=== PATIENT | male | born 1990 | race Caucasian/White ===

== ENCOUNTER 2017-06-15 22:05 | Emergency (ER) | payer OTHER ==
[2017-06-15 22:43] LABS: BASOPHILS 0.3 % (0-2); EOSINOPHILS 4.1 % (0-7); HEMATOCRIT 45.2 % (42.0-54.0); HEMOGLOBIN 16.1 g/dL (13.5-17.5); IMMATURE GRANULOCYTES 0.1 % (0-5); LYMPHOCYTES 36.7 % (15-50); MCH 30.7 pg (26.0-34.0); MCHC 35.6 g/dL (31.0-37.0); MCV 86.1 fL (80.0-100.0); MEAN PLATELET VOLUME 10.4 fL (7.4-10.4); MONOCYTES 6.4 % (2-11); NEUTROPHILS 52.4 % (40-80); PLATELET COUNT 208 10x3/uL (130-400); RBC 5.25 10x6/uL (4.20-6.10); RDW 12.3 % (11.5-14.5); WBC 7.8 10x3/uL (4.8-10.8)
[2017-06-15 22:55] LABS: APPEARANCE CLEAR (CLEAR); BILIRUBIN NEGATIVE (NEGATIVE); COLOR YELLOW (YELLOW); GLUCOSE NEGATIVE (NEGATIVE); KETONE NEGATIVE (NEGATIVE); NITRITE NEGATIVE (NEGATIVE); PROTEIN NEGATIVE (NEGATIVE); UROBILINOGEN NORMAL (NORMAL)
[2017-06-15 23:00] LABS: ALKALINE PHOSPHATASE 77 U/L (46-116); ALT (SGPT) 21 U/L (10-68); CALC OSMOLALITY 285 mosm/kg (275-300); CALCIUM 8.9 mg/dL (8.5-10.1); CARBON DIOXIDE 31.7 mmol/L (21.0-32.0); CHLORIDE - SERUM 103 mmol/L (98-107); CREATININE - SERUM 1.1 mg/dL (0.6-1.3); GLUCOSE 109 mg/dL (74-106); POTASSIUM - SERUM 3.8 mmol/L (3.5-5.1); PROTEIN - SERUM 7.5 g/dL (6.4-8.2); SODIUM 142 mmol/L (136-145); UREA NITROGEN 19 mg/dL (7-18); eGFR NON AFRICAN AMERICAN 86 mL/min (90-120)
== END 2017-06-16 00:05 | disposition home or self-care (01) ==
LOC: D.ER 22:05
PROVIDERS: Emergency Medicine
DX: R19.7 Diarrhea, unspecified (principal); F17.200 Nicotine dependence, unspecified, uncomplicated

== ENCOUNTER 2018-01-25 23:20 | Emergency (ER) | payer SELFPAY ==
[~2018-01-25] VITALS: Ht 188 cm; Wt 68.0 kg
[2018-01-25 23:27] VITALS: Ht 188 cm; Wt 68.0 kg
[2018-01-26] MEDS ORDERED: ULTRAM50 MG PO (01:20)
[2018-01-26 01:47] VITALS: BP 116/73
== END 2018-01-26 01:48 | disposition home or self-care (01) ==
LOC: D.ER 23:20
DX: S43.401A Unspecified sprain of right shoulder joint, initial encounter (principal); X58.XXXA Exposure to other specified factors, initial encounter; Y93.89 Activity, other specified; Y92.89 Other specified places as the place of occurrence of the external cause

== ENCOUNTER 2018-04-10 21:34 | Emergency (ER) | payer SELFPAY ==
[~2018-04-10 21:34] MED LIST: ULTRAM50 MG PO
== END 2018-04-10 21:45 | disposition left against medical advice (07) ==
LOC: D.ER 21:34
DX: E86.0 Dehydration (principal)

== ENCOUNTER 2018-04-11 23:00 | Emergency (ER) | payer SELFPAY ==
[~2018-04-11] VITALS: Ht 188 cm; Wt 68.2 kg
[2018-04-11 23:08] VITALS: Ht 188 cm; Wt 68.2 kg
[2018-04-11 23:41] LABS: BASOPHILS 0.2 % (0-2); EOSINOPHILS 1.1 % (0-7); HEMATOCRIT 38.2 % (42.0-54.0); HEMOGLOBIN 13.2 g/dL (13.5-17.5); IMMATURE GRANULOCYTES 0.2 % (0-5); LYMPHOCYTES 13.7 % (15-50); MCH 29.3 pg (26.0-34.0); MCHC 34.6 g/dL (31.0-37.0); MCV 84.9 fL (80.0-100.0); MEAN PLATELET VOLUME 10.2 fL (7.4-10.4); MONOCYTES 6.7 % (2-11); NEUTROPHILS 78.1 % (40-80); PLATELET COUNT 134 10x3/uL (130-400); RDW 12.8 % (11.5-14.5); WBC 6.6 10x3/uL (4.8-10.8)
[2018-04-11 23:54] LABS: ALBUMIN 3.7 g/dL (3.4-5.0); ALKALINE PHOSPHATASE 59 U/L (46-116); ALT (SGPT) 38 U/L (10-68); CALC OSMOLALITY 280 mosm/kg (275-300); CALCIUM 8.9 mg/dL (8.5-10.1); CARBON DIOXIDE 27.4 mmol/L (21.0-32.0); CHLORIDE - SERUM 106 mmol/L (98-107); CREATININE - SERUM 1.2 mg/dL (0.6-1.3); GLUCOSE 109 mg/dL (74-106); POTASSIUM - SERUM 3.5 mmol/L (3.5-5.1); PROTEIN - SERUM 7.1 g/dL (6.4-8.2); SODIUM 141 mmol/L (136-145); UREA NITROGEN 11 mg/dL (7-18); eGFR NON AFRICAN AMERICAN 77 mL/min (90-120)
[2018-04-12] MEDS ORDERED: IBUPROFEN800 MG PO (00:15)
[2018-04-12] MEDS ORDERED: ACETAMINOPHEN500 M1 PO (00:15)
[2018-04-12 02:20] VITALS: BP 114/79
== END 2018-04-12 00:27 | disposition home or self-care (01) ==
LOC: D.ER 23:00
PROVIDERS: Family Medicine
DX: J06.9 Acute upper respiratory infection, unspecified (principal); R53.81 Other malaise; M79.10 Myalgia, unspecified site; R50.9 Fever, unspecified; R05 Cough; R09.89 Other specified symptoms and signs involving the circulatory and respiratory systems

== ENCOUNTER 2018-04-29 10:17 | Emergency (ER) | payer SELFPAY ==
[~2018-04-29] VITALS: Ht 188 cm; Wt 68.2 kg
[~2018-04-29 10:17] MED LIST changes: +ACETAMINOPHEN500 M1 PO; +IBUPROFEN800 MG PO
[2018-04-29 10:44] VITALS: BP 112/69; Ht 188 cm; Wt 68.2 kg
== END 2018-04-29 13:31 | disposition home or self-care (01) ==
LOC: D.ER 10:17
DX: S49.91XA Unspecified injury of right shoulder and upper arm, initial encounter (principal); X58.XXXA Exposure to other specified factors, initial encounter; Y93.89 Activity, other specified; Y92.89 Other specified places as the place of occurrence of the external cause

== ENCOUNTER 2018-10-21 18:05 | Inpatient (IN) | payer MEDICAID ==
[2018-10-21 19:25] LABS: BASOPHILS 0.2 % (0-2); EOSINOPHILS 0.3 % (0-7); HEMATOCRIT 39.1 % (42.0-54.0); HEMOGLOBIN 13.8 g/dL (13.5-17.5); IMMATURE GRANULOCYTES 0.3 % (0-5); LYMPHOCYTES 10.7 % (15-50); MCH 30.2 pg (26.0-34.0); MCHC 35.3 g/dL (31.0-37.0); MCV 85.6 fL (80.0-100.0); MEAN PLATELET VOLUME 10.4 fL (7.4-10.4); MONOCYTES 3.9 % (2-11); NEUTROPHILS 84.6 % (40-80); RBC 4.57 10x6/uL (4.20-6.10); RDW 12.7 % (11.5-14.5); WBC 14.2 10x3/uL (4.8-10.8)
[2018-10-21 19:35] LABS: PLATELET COUNT 179 10x3/uL (130-400)
[2018-10-21 19:54] LABS: ALBUMIN 4.1 g/dL (3.4-5.0); ALKALINE PHOSPHATASE 56 U/L (46-116); ALT (SGPT) 22 U/L (10-68); BILIRUBIN - TOTAL 0.27 mg/dL (0.2-1.3); CALC OSMOLALITY 294 mosm/kg (275-300); CALCIUM 8.6 mg/dL (8.5-10.1); CARBON DIOXIDE 26.8 mmol/L (21.0-32.0); CHLORIDE - SERUM 107 mmol/L (98-107); CKMB 0.3 U/L (0.0-3.6); CREATINE KINASE 71 UL (21-232); CREATININE - SERUM 1.1 mg/dL (0.6-1.3); GLUCOSE 155 mg/dL (74-106); PROTEIN - SERUM 7.2 g/dL (6.4-8.2); SODIUM 145 mmol/L (136-145); TROPONIN-I < 0.017 ng/mL (0.000-0.060); UREA NITROGEN 22 mg/dL (7-18); eGFR NON AFRICAN AMERICAN 85 mL/min (90-120)
[2018-10-21 20:01] LABS: POTASSIUM - SERUM 2.8 mmol/L (3.5-5.1)
[2018-10-21 20:30] VITALS: BP 110/60; BP 136/67
[2018-10-21 21:30] VITALS: BP 125/69
[2018-10-21 22:49] VITALS: BP 110/66
[2018-10-22] VITALS (36 sets, daily range): BP systolic 92–153; BP diastolic 36–92; BMI 17.7
--- NOTE | 2018-10-22 22:51 | MORECARE ---
CASE MANAGEMENT DISCHARGE SUMMARY PATIENT: SINDY DUARTE UNIT: [id number] ADM DATE: 10/21/18 AGE: 28 : [birth year] SEX: M ROOM/BED: D.[facility] AUTHOR: PAOLA ASHRAF PHYSICIAN: REFERRING PHYSICIAN: LINDSEY BROWN MD DATE OF SERVICE: 10/22/18 Discharge Plan Patient Name: SINDY DUARTE Facility: [facility]:[place] : 1990 Planned Disposition: Court\Law Enforcement Anticipated Discharge Date: Discharge Date: Expected LOS: Initial Reviewer: [email or web address] Initial Review Date: 10/21/2018 Generated: 10/22/18 11:51 pm Patient Name: SINDY DUARTE Page [id number] at 2251 All edits/amendments must be made on the electronic document DICTATION DATE: 10/22/182250 TOPSTITCHER LOCKSTITCH: MORENITA 10/22/182250 RPT#: [id number] DC DATE: STATUS: ADM IN [address] [place] [address] END OF REPORT
--- NOTE | 2018-10-22 22:59 | MORECARE ---
CASE MANAGEMENT DISCHARGE SUMMARY PATIENT: SINDY DUARTE UNIT: [id number] ADM DATE: 10/21/18 AGE: 28 : [birth year] SEX: M ROOM/BED: D.[facility] AUTHOR: PAOLA ASHRAF PHYSICIAN: REFERRING PHYSICIAN: LINDSEY BROWN MD DATE OF SERVICE: 10/22/18 Discharge Plan Patient Name: SINDY DUARTE Facility: [facility]:[place] : 1990 Planned Disposition: Court\Law Enforcement Anticipated Discharge Date: Discharge Date: Expected LOS: Initial Reviewer: [email or web address] Initial Review Date: 10/21/2018 Generated: 10/22/18 11:59 pm Comments DCP- Discharge Planning Updated by [email or web address]: Bebe Butler on 10/22/18 9:[address] Patient Name: SINDY DUARTE Admission Status: ER Accout number: [id number] Admission Date: 10-21-2018 : 1990 Admission Diagnosis: Attending: LINDSEY BROWN Current LOS: 1 Anticipated DC Date: Planned Disposition: Court\Law Enforcement Primary Insurance: UNINSURED DISCOUNT PLAN Discharge Planning Comments: Patient to return to [facility] when medically stable for discharge. Guard at bedside. CM will continue to follow and assist as needed with discharge planning / needs. Movie Stunt Performer: Bebe Butler Last DP export: 10/22/18 9:51 p Patient Name: SINDY DUARTE Page [phone] at 2259 All edits/amendments must be made on the electronic document DICTATION DATE: 10/22/182257 KITCHEN AND COUNTER WORKER: MORENITA 10/22/182257 RPT#: [id number] DC DATE: STATUS: ADM IN [facility] [address] [place] [address] END OF REPORT
[2018-10-23] VITALS (10 sets, daily range): BP systolic 89–102; BP diastolic 37–59
[2018-10-23 04:27] LABS: BASOPHILS 0 % (0-2); EOSINOPHILS 0 % (0-7); HEMATOCRIT 37.4 % (42.0-54.0); HEMOGLOBIN 12.9 g/dL (13.5-17.5); IMMATURE GRANULOCYTES 0.2 % (0-5); LYMPHOCYTES 5.6 % (15-50); MCH 30.1 pg (26.0-34.0); MCHC 34.5 g/dL (31.0-37.0); MCV 87.2 fL (80.0-100.0); MEAN PLATELET VOLUME 10.7 fL (7.4-10.4); MONOCYTES 3.6 % (2-11); NEUTROPHILS 90.6 % (40-80); PLATELET COUNT 180 10x3/uL (130-400); RBC 4.29 10x6/uL (4.20-6.10); WBC 13.2 10x3/uL (4.8-10.8)
[2018-10-23 05:07] LABS: ALBUMIN 3.7 g/dL (3.4-5.0); ALKALINE PHOSPHATASE 50 U/L (46-116); BILIRUBIN - TOTAL 0.32 mg/dL (0.2-1.3); CALC OSMOLALITY 294 mosm/kg (275-300); CALCIUM 8.7 mg/dL (8.5-10.1); CARBON DIOXIDE 29.3 mmol/L (21.0-32.0); CHLORIDE - SERUM 108 mmol/L (98-107); CREATININE - SERUM 1.2 mg/dL (0.6-1.3); GLUCOSE 141 mg/dL (74-106); POTASSIUM - SERUM 4.5 mmol/L (3.5-5.1); SODIUM 145 mmol/L (136-145); UREA NITROGEN 23 mg/dL (7-18); eGFR NON AFRICAN AMERICAN 77 mL/min (90-120)
[2018-10-23 05:09] LABS: ALT (SGPT) 29 U/L (10-68)
--- NOTE | 2018-10-24 16:44 | MORECARE ---
CASE MANAGEMENT DISCHARGE SUMMARY PATIENT: SINDY DUARTE UNIT: [id number] ADM DATE: 10/21/18 AGE: 28 : [birth year] SEX: M ROOM/BED: D.[facility] AUTHOR: PAOLA ASHRAF PHYSICIAN: REFERRING PHYSICIAN: LINDSEY BROWN MD DATE OF SERVICE: 10/24/18 Discharge Plan Patient Name: SINDY DUARTE Facility: [facility]:[place] : 1990 Planned Disposition: Court\Law Enforcement Anticipated Discharge Date: Discharge Date: 10/23/2018 Expected LOS: Initial Reviewer: [email or web address] Initial Review Date: 10/21/2018 Generated: 10/24/18 5:44 pm DCP- Discharge Planning Updated by [email or web address]: Bebe Butler on 10/22/18 9:[address] Patient Name: SINDY DUARTE Admission Status: ER Accout number: [id number] Admission Date: 10-21-2018 : 1990 Admission Diagnosis: Attending: LINDSEY BROWN Current LOS: 1 Anticipated DC Date: Planned Disposition: Court\Law Enforcement Primary Insurance: UNINSURED DISCOUNT PLAN Discharge Planning Comments: Patient to return to [facility] when medically stable for discharge. Guard at bedside. CM will continue to follow and assist as needed with discharge planning / needs. Electrotyper Apprentice: Bebe Butler Last DP export: 10/22/18 9:59 p Patient Name: SINDY DUARTE Page [phone] at 1644 All edits/amendments must be made on the electronic document DICTATION DATE: 10/24/181642 SEED EXPERT: MORENITA 10/24/181642 RPT#: [id number] DC DATE:10/23/18 STATUS: DIS IN [facility] [address] [place] [place] [address] END OF REPORT
== END 2018-10-23 13:11 | DRG 916 ==
LOC: D.ER 18:05 → D.EDHOLD 22:23 → D.CVICU 23:09
PROVIDERS: Family Medicine; ADMIT Internal Medicine Nephrology
DX: T78.04XA Anaphylactic reaction due to fruits and vegetables, initial encounter (principal)

== ENCOUNTER 2018-11-11 21:24 | Emergency (ER) | payer SELFPAY ==
[~2018-11-11] VITALS: Ht 188 cm; Wt 2.8 kg
[2018-11-11 21:26] VITALS: Ht 188 cm; Wt 2.8 kg
[2018-11-11 22:28] LABS: BASOPHILS 0.5 % (0-2); EOSINOPHILS 2.3 % (0-7); HEMATOCRIT 36.5 % (42.0-54.0); HEMOGLOBIN 12.8 g/dL (13.5-17.5); LYMPHOCYTES 44.7 % (15-50); MCH 30.4 pg (26.0-34.0); MCHC 35.1 g/dL (31.0-37.0); MCV 86.7 fL (80.0-100.0); MEAN PLATELET VOLUME 10.7 fL (7.4-10.4); MONOCYTES 3.9 % (2-11); NEUTROPHILS 48.6 % (40-80); PLATELET COUNT 157 10x3/uL (130-400); RBC 4.21 10x6/uL (4.20-6.10); WBC 4.4 10x3/uL (4.8-10.8)
[2018-11-11 22:47] LABS: APPEARANCE CLEAR (CLEAR); BILIRUBIN NEGATIVE (NEGATIVE); COLOR STRAW (YELLOW); GLUCOSE NEGATIVE (NEGATIVE); KETONE NEGATIVE (NEGATIVE); NITRITE NEGATIVE (NEGATIVE); PROTEIN NEGATIVE (NEGATIVE); SPECIFIC GRAVITY 1.015 (1.005-1.020); UROBILINOGEN NORMAL (NORMAL)
[2018-11-11 22:49] LABS: APTT 26.6 SECONDS (22.8-39.4); INR 1.12 (0.85-1.17); PROTIME 13.9 SECONDS (11.6-15.0)
[2018-11-11 22:56] LABS: UDS - AMPHET NEGATIVE QUAL (NEGATIVE); UDS - BARB NEGATIVE QUAL (NEGATIVE); UDS - BENZO NEGATIVE QUAL (NEGATIVE); UDS - COCAINE NEGATIVE QUAL (NEGATIVE); UDS - OPIATE NEGATIVE QUAL (NEGATIVE); UDS - PCP NEGATIVE QUAL (NEGATIVE); UDS - THC NEGATIVE QUAL (NEGATIVE)
[2018-11-11 22:58] LABS: D-DIMER-QUANTITATIVE < 0.27 ug/mLFEU (0.20-0.54)
[2018-11-11 23:00] LABS: ALBUMIN 3.8 g/dL (3.4-5.0); ALKALINE PHOSPHATASE 50 U/L (46-116); ALT (SGPT) 20 U/L (10-68); BILIRUBIN - TOTAL 0.47 mg/dL (0.2-1.3); CALC OSMOLALITY 289 mosm/kg (275-300); CARBON DIOXIDE 25.5 mmol/L (21.0-32.0); CHLORIDE - SERUM 108 mmol/L (98-107); CKMB 0.5 U/L (0.0-3.6); CREATINE KINASE 106 UL (21-232); CREATININE - SERUM 1.2 mg/dL (0.6-1.3); GLUCOSE 129 mg/dL (74-106); PRO BNP 151 pg/mL (0-125); PROTEIN - SERUM 6.3 g/dL (6.4-8.2); SODIUM 145 mmol/L (136-145); TROPONIN-I < 0.017 ng/mL (0.000-0.060); UREA NITROGEN 11 mg/dL (7-18); eGFR NON AFRICAN AMERICAN 77 mL/min (90-120)
[2018-11-11 23:01] LABS: POTASSIUM - SERUM 2.4 mmol/L (3.5-5.1)
[2018-11-11 23:15] VITALS: BP 92/44
== END 2018-11-12 00:03 | disposition left against medical advice (07) ==
LOC: D.ER 21:24
PROVIDERS: Family Medicine
DX: J45.901 Unspecified asthma with (acute) exacerbation (principal); E87.6 Hypokalemia

== ENCOUNTER 2018-11-14 16:12 | Observation (INO) | payer OTHER ==
[~2018-11-14] VITALS: Ht 188 cm; Wt 63.5 kg
[2018-11-14 19:13] VITALS: BP 134/76
[2018-11-14 20:00] VITALS: BP 118/67
[2018-11-14 21:00] VITALS: BP 108/57
[2018-11-14] MEDS ORDERED: ACETAMINOPHEN500 M1 PO (22:15)
[2018-11-14 22:17] VITALS: BP 97/44; BMI 18.0
[2018-11-15] VITALS: BP 90/41
[2018-11-15 04:00] VITALS: BP 99/55
--- NOTE | 2018-11-15 08:00 | NUR ---
PT LYING IN BED. EYES CLOSED. CHEST RISING AND FALLING. FLUSHED LEFT HAND IV WITH 10CC NS. ROOM AIR. GUARD AT BEDSIDE. PT HAS NO FURTHER NEEDS AT THIS TIME. WILL CONTINUE TO MONITOR.
[2018-11-15 08:27] VITALS: BP 98/58
[2018-11-15 10:47] VITALS: Ht 188 cm; Wt 63.5 kg
[2018-11-15 12:02] LABS: HEMATOCRIT 41.4 % (42.0-54.0); HEMOGLOBIN 14.1 g/dL (13.5-17.5); MCH 30.4 pg (26.0-34.0); MCHC 34.1 g/dL (31.0-37.0); MCV 89.2 fL (80.0-100.0); RBC 4.64 10x6/uL (4.20-6.10); RDW 12.8 % (11.5-14.5); WBC 7.3 10x3/uL (4.8-10.8)
[2018-11-15 12:05] LABS: PLATELET COUNT 206 10x3/uL (130-400)
[2018-11-15 12:23] LABS: ALBUMIN 3.8 g/dL (3.4-5.0); ALKALINE PHOSPHATASE 49 U/L (46-116); ALT (SGPT) 15 U/L (10-68); BILIRUBIN - TOTAL 0.54 mg/dL (0.2-1.3); CALC OSMOLALITY 285 mosm/kg (275-300); CALCIUM 9.2 mg/dL (8.5-10.1); CHLORIDE - SERUM 105 mmol/L (98-107); CREATININE - SERUM 1.1 mg/dL (0.6-1.3); GLUCOSE 130 mg/dL (74-106); PROTEIN - SERUM 6.7 g/dL (6.4-8.2); SODIUM 141 mmol/L (136-145); UREA NITROGEN 22 mg/dL (7-18); eGFR NON AFRICAN AMERICAN 85 mL/min (90-120)
[2018-11-15 12:53] LABS: LYMPHOCYTES 8 % (15-50); NEUTROPHILS 92 % (40-80); PLATELET ESTIMATE NORMAL
--- NOTE | 2018-11-15 15:07 | NUR ---
GUARD IN ROOM YELLED OUT THAT THE PATIENT WASNT BREATHING AND THAT HIS THROAT WAS CLOSING OFF. ENTERED THE ROOM TO FIND THE PATIENT WAS HAVING AUDIBLE WHEEZING AND STRUGGLING TO BREATH. ADMINISTERED ORDERED DOSE OF BENADRYL, NOTIFIED AND CHARGE NURSE, AND PLACED PT ON VITAL SIGN MACHINE. VITALS WERE WNL AND O2 SATS WERE 100%ON RA. AT THAT TIME, SOLU MEDROL WAS DUE TO BE GIVEN. ADMINISTERED ORDERED DOSE OF SOLU MEDROL. RESPIRATIONS BECAME UNLABORED AND PT VERBALIZED THAT HE WAS FEELING BETTER. PT HAD ONLY EATEN A SMALL AMOUNT OF RED JELLO. STATED TO JUST GIVE HIM THE SOLU MEDROL AND BENADRYL AND THAT "HE WOULD BE FINE." PT IS CURRENTLY LYING SUPINE. CALL LIGHT W/I REACH. GUARD AT BEDSIDE. RR EVEN AND UNLABORED. WILL CTM.
--- NOTE | 2018-11-15 15:52 | NUR ---
I have reviewed this patient and I concur with the Shift Assessment completed by the Licensed Practical Nurse today this shift.
--- NOTE | 2018-11-15 17:26 | NUR ---
PT CURRENTLY LYING SEMI FOWLERS. CALL LIGHT W/I REACH. RR EVEN AND UNLABORED ON RA. GUARD AT BEDSIDE. PT DENIES ANY NEEDS OR DISTRESS AT THIS TIME. L.HAND PIV IS SALINE LOCKED. WILL PASS REPORT AND CONTINUE WITH POC.
[2018-11-15 18:04] LABS: APPEARANCE CLEAR (CLEAR); BILIRUBIN NEGATIVE (NEGATIVE); COLOR YELLOW (YELLOW); GLUCOSE NEGATIVE (NEGATIVE); KETONE NEGATIVE (NEGATIVE); NITRITE NEGATIVE (NEGATIVE); PROTEIN NEGATIVE (NEGATIVE); SPECIFIC GRAVITY 1.015 (1.005-1.020); UROBILINOGEN NORMAL (NORMAL)
[2018-11-15 18:12] LABS: UDS - AMPHET NEGATIVE QUAL (NEGATIVE); UDS - BARB NEGATIVE QUAL (NEGATIVE); UDS - BENZO NEGATIVE QUAL (NEGATIVE); UDS - COCAINE NEGATIVE QUAL (NEGATIVE); UDS - OPIATE NEGATIVE QUAL (NEGATIVE); UDS - PCP NEGATIVE QUAL (NEGATIVE); UDS - THC NEGATIVE QUAL (NEGATIVE)
[2018-11-15 18:53] VITALS: BP 110/58
--- NOTE | 2018-11-15 18:53 | NUR ---
GREETED PATIENT AND INTRODUCED MYSELF HIS NURSE FOR THE EVENING. PATIENT IS LAYING IN BED WITH HEALTHCARE EDUCATOR AT BEDSIDE. DENIES ANY NEEDS AT THIS TIME. VITAL SIGNS OBTAINED. CALL LIGHT IN REACH.
--- NOTE | 2018-11-15 23:13 | NUR ---
PATIENT RESTING QUIETLY LAYING ON LEFT SIDE. RESPIRATIONS EVEN. NO S/S OF DISTRESS. SR UP X 2. BED IN LOWEST POSITION. CHIEF PAYROLL CLERK DEPUTY AT BEDSIDE. CALL LIGHT IN REACH.
--- NOTE | 2018-11-16 00:03 | NUR ---
PATIENT COMPLAINED OF PAIN IN THROAT. UPON ASSESSMENT OBSERVED WHITE PATCHES ON THE BACK OF HIS THROAT. WILL CONTACT DR FOR FURTHER INSTRUCTIONS.
[2018-11-16 00:05] VITALS: BP 107/63
--- NOTE | 2018-11-16 00:13 | NUR ---
CALLED DR. BROWN AND EXPLAINED THAT PATIENT HAD WHITE PATCHES IN THE BACK OF HIS THROAT AND WAS HAVING A HARD TIME SWALLOWING. INFORMED THAT PATIENT WAS NOT RUNNING A FEVER. STATED THAT THERE WOULD BE NO CHANGE IN HIS THERAPY.
--- NOTE | 2018-11-16 03:01 | NUR ---
PATIENT RESTING QUIETLY LAYING IN SUPINE POSITION. HOB AT 30 DEGREES. RESPIRATIONS EVEN. NO S/S DISTRESS. GUARD AT BEDSIDE. CALL LIGHT IN REACH.
[2018-11-16 04:10] VITALS: BP 93/56
--- NOTE | 2018-11-16 08:13 | NUR ---
PT AWAKE AND ORIENTED. STATES HIS THROAT IS SCRATCHY. SWAB STREP PREFORMED WAITING FOR RESULTS. GUARD AT BEDSIDE. NO COMPLAINTS/CONCERNS VOICED AT THIS TIME. CL IN REACH, SRX2.
[2018-11-16 09:26] VITALS: BP 108/66
--- NOTE | 2018-11-16 11:13 | NUR ---
PT UNABLE TO LEAVE UNTIL 1800 WHEN SISTER ARIVES FROM [facility].
--- NOTE | 2018-11-16 11:31 | NUR ---
PT ESCORTED OUT VIA WHEELCHAIR, NO COMPLAINTS/CONCERNS AT THIS TIME.
--- NOTE | 2018-11-16 16:31 | MORECARE ---
CASE MANAGEMENT DISCHARGE SUMMARY PATIENT: SINDY DUARTE UNIT: [id number] ADM DATE: 11/14/18 AGE: 28 : [birth year] SEX: M ROOM/BED: D.1206 AUTHOR: PAOLA ASHRAF PHYSICIAN: REFERRING PHYSICIAN: LINDSEY BROWN MD DATE OF SERVICE: 11/16/18 Discharge Plan Patient Name: SINDY DUARTE Facility: [facility]:[place] : 1990 Planned Disposition: Anticipated Discharge Date: Discharge Date: 11/16/2018 Expected LOS: Initial Reviewer: [email or web address] Initial Review Date: 11/16/2018 Generated: 11/16/18 5:31 pm Patient Name: SINDY DUARTE Page [phone] at 1631 All edits/amendments must be made on the electronic document DICTATION DATE: 11/16/18 1631 DOUGH SHEETER: MORENITA 11/16/18 1631 RPT#: [id number] DC DATE:11/16/18 STATUS: DIS IN [facility] [address] [facility] [place] [address] END OF REPORT
== END 2018-11-16 11:33 ==
LOC: D.ER 16:12 → D.EDHOLD 21:25 → OBSVTIME 21:25 → D.M3 21:25
PROVIDERS: ADMIT Internal Medicine Nephrology; ATTEND Internal Medicine Nephrology
DX: T78.09XA Anaphylactic reaction due to other food products, initial encounter (principal)